=== PATIENT | female | born 1985 | race Two or more races ===

== ENCOUNTER 2016-06-24 23:42 | Emergency (ER) | payer MEDICAID ==
[~2016-06-24] VITALS: Ht 149.9 cm; Wt 49.0 kg
[~2016-06-24 23:42] MED LIST: PREN-88 PO
[2016-06-25 01:48] VITALS: BP 120/63
== END 2016-06-25 04:45 | disposition home or self-care (01) ==
LOC: ER 06-25 04:45
DX: B85.0 Pediculosis due to Pediculus humanus capitis (principal); I10 Essential (primary) hypertension; H91.90 Unspecified hearing loss, unspecified ear
CPT/HCPCS: 99283